=== PATIENT | female | born 1990 | race African-American/Black ===

== ENCOUNTER 2020-02-10 11:47 | Emergency (ER) | payer OTHER ==
[2020-02-10 16:03] VITALS: BP 141/88
--- NOTE | 2020-02-10 16:04 | NUR ---
Patient discharged with v/s stable. Written and verbal after care instructions given and explained. Patient alert, oriented and verbalized understanding of instructions. Ambulatory with steady gait. All questions addressed prior to discharge. ID band removed. Patient advised to follow up with PMD. Rx of Provera 10mg given. Patient educated on indication of medication including possible reaction and side effects. Opportunity to ask questions provided and answered.
== END 2020-02-10 16:04 | disposition home or self-care (01) ==
LOC: MED 11:47
DX: E11.65 Type 2 diabetes mellitus with hyperglycemia (principal); E78.5 Hyperlipidemia, unspecified
CPT/HCPCS: 99283

== ENCOUNTER 2020-08-22 14:03 | Emergency (ER) | payer OTHER ==
[~2020-08-22] VITALS: Ht 160 cm; Wt 126.6 kg
[2020-08-22 14:17] VITALS: BP 117/103
[2020-08-22] MEDS ORDERED: LORA10TA19 PO (16:15)
[2020-08-22] MEDS ORDERED: IBUP-1842 PO (16:15)
[2020-08-22 16:30] VITALS: BP 143/65
== END 2020-08-22 16:31 | disposition home or self-care (01) ==
LOC: MED 14:03
DX: R07.0 Pain in throat (principal); F17.210 Nicotine dependence, cigarettes, uncomplicated; Z79.899 Other long term (current) drug therapy; Z71.6 Tobacco abuse counseling
CPT/HCPCS: 87081; 99283

== ENCOUNTER 2020-11-21 17:35 | Emergency (ER) | payer OTHER ==
[~2020-11-21] VITALS: Ht 160 cm; Wt 117.9 kg
[~2020-11-21 17:35] MED LIST: IBUP-1842 PO; LORA10TA19 PO
[2020-11-21 17:39] VITALS: BP 141/110
[2020-11-21] MEDS ORDERED: NACL 0.9% 1,000 ML IV SCH (17:55)
--- NOTE | 2020-11-21 18:15 | NUR ---
30 YO FEMALE BIBS C/O 10 GENERALIZED ABDOMINAL PAIN X FEW HOURS. ALSO REPORTS NAUSEA, DENIES VOMITING AND DIARRHEA. DENIES DYSURIA BUT REPORTS PINK-TINGED BLOOD WHEN SHE WIPED VAGINA THIS AM. PT WENT TO SEE MD AND WAS TOLD THAT URINALYSIS SHOWED KETONES AND GLUCOSE, HENCE ADVICED TO BE SEEN IN ER. A&OX4, GCS 15, PLACED ON MONITOR FOR FURTHER EVALUATION. BS IN ER: [id number] (HUMULIN N LAST TAKEN AT 1AM) PMH: DM MEDS: HUMULIN N ALLERGIES: LANTUS, AMOXICILLIN, UNRECALLED ANTIBIOTICS
--- NOTE | 2020-11-21 18:42 | NUR ---
BLOOD SAMPLES COLLECTED TAKEN TO LAB.
[2020-11-21 19:01] LABS: BASOPHILS # (AUTO) 0.2 K/uL (0.00-0.22); BASOPHILS % (AUTO) 2.1 % (0.0-2.0); EOSINOPHILS # (AUTO) 0.1 K/uL (0-0.4); EOSINOPHILS % (AUTO) 1.1 % (0.0-4.0); HEMATOCRIT 41.9 % (36-48); HEMOGLOBIN 14.4 g/dL (12.0-16.0); LYMPHOCYTES # (AUTO) 2.5 K/uL (2.5-16.5); LYMPHOCYTES % (AUTO) 34.3 % (20.5-51.1); MEAN CORPUSCULAR HEMOGLOBIN 30 pg (27-31); MEAN CORPUSCULAR HGB CONC 34 g/dL (33-37); MEAN CORPUSCULAR VOLUME 87.8 fL (80-94); MONOCYTES # (AUTO) 0.7 K/uL (0.8-1.0); MONOCYTES % (AUTO) 9.8 % (1.7-9.3); NEUTROPHILS # (AUTO) 3.8 K/uL (1.8-7.7); NEUTROPHILS % (AUTO) 52.7 % (42.2-75.2); PLATELET COUNT (AUTO) 304 K/uL (140-450); RED BLOOD CELL COUNT(AUTO) 4.78 MIL/uL (4.20-5.40); RED CELL DISTRIBUTION WIDTH 13.7 % (11.6-13.7); WHITE BLOOD COUNT (AUTO) 7.2 K/uL (4.8-10.8)
[2020-11-21 19:08] LABS: APPEARANCE,URINE CLEAR (CLEAR); BILIRUBIN,URINE NEGATIVE (NEGATIVE); BLOOD, URINE 3+ (NEGATIVE); COLOR,URINE YELLOW (YELLOW); LEUKOCYTE ESTERASE ,URINE NEGATIVE (NEGATIVE); NITRITE, URINE NEGATIVE (NEGATIVE); PH,URINE 5.5 (5.0-9.0); UGLUCOSE 3+ (NEGATIVE)
[2020-11-21 19:11] LABS: ALBUMIN 3.7 g/dL (3.4-5.0); ANION GAP 17.3 (8-16); CARBON DIOXIDE 22.2 mmol/L (21-32); CREATININE 0.9 mg/dL (0.6-1.3); POTASSIUM 4.5 mmol/L (3.5-5.1); TOTAL BILIRUBIN 0.3 mg/dL (0.0-1.0)
[2020-11-21 19:16] LABS: RBC,URINE 20-50 /HPF (0-5); WBC,URINE 0-5 /HPF (0-5)
[2020-11-21 19:17] LABS: YEAST,URINE Many /HPF (None Seen)
--- NOTE | 2020-11-21 19:20 | NUR ---
RECEIVING REPORT FROM JODEE CHAN FOR CONTINUITY OF CARE.
--- NOTE | 2020-11-21 19:21 | NUR ---
REPORT AND CONTINUATION OF CARE GIVEN TO DUSTIN MENA.
--- NOTE | 2020-11-21 19:29 | NUR ---
Patient appears to be resting comfortably in bed- high fowlers with eyes open. Respirations even and unlabored no signs of respiratory distress. Safety measures are in place, and will continue to monitor patient.
--- NOTE | 2020-11-21 19:32 | NUR ---
JODIE FRIAS AT BEDSIDE FOR EXAMINATION OF PATIENT
--- NOTE | 2020-11-21 19:44 | NUR ---
RT at bedside performing ABG.
--- NOTE | 2020-11-21 19:58 | NUR ---
PT REFUSED TO ABG. NOTIFIED.
--- NOTE | 2020-11-21 20:23 | NUR ---
Pt taken to CT via ralfredo.
[2020-11-21] MEDS ORDERED: OMEP40EC24 PO (21:07)
[2020-11-21] MEDS ORDERED: IBUP-2213 PO (21:07)
--- NOTE | 2020-11-21 21:08 | NUR ---
patient ambulated to the bathroom
--- NOTE | 2020-11-21 21:15 | NUR ---
IV removed, catheter intact and site benign. Applied folded 4x4 gauze and tape to stop bleeding.
--- NOTE | 2020-11-21 21:17 | NUR ---
Patient discharged with v/s stable. Written and verbal after care instructions given and explained. Patient alert, oriented and verbalized understanding of instructions. Ambulatory with steady gait. All questions addressed prior to discharge. ID band removed. Patient advised to follow up with PMD. Rx of PRILOSEC AND IBUPROFEN given. Patient educated on indication of medication including possible reaction and side effects. Opportunity to ask questions provided and answered.
[2020-11-21 21:18] VITALS: BP 141/110
== END 2020-11-21 21:17 | disposition home or self-care (01) ==
LOC: MED 17:35
DX: R10.13 Epigastric pain (principal); E11.9 Type 2 diabetes mellitus without complications; F17.210 Nicotine dependence, cigarettes, uncomplicated; Z79.1 Long term (current) use of non-steroidal anti-inflammatories (NSAID); Z79.899 Other long term (current) drug therapy; Z88.0 Allergy status to penicillin; Z88.8 Allergy status to other drugs, medicaments and biological substances
CPT/HCPCS: 36415; 74176; 80053; 81001; 83690; 85025; 96360; 99284; J7030

== ENCOUNTER 2021-04-04 13:47 | Emergency (ER) | payer OTHER ==
[~2021-04-04] VITALS: Ht 160 cm; Wt 116.6 kg
[~2021-04-04 13:47] MED LIST changes: +IBUP-2213 PO; +OMEP40EC24 PO
[2021-04-04 13:49] VITALS: BP 137/78
--- NOTE | 2021-04-04 14:08 | NUR ---
COVID PCR AND COVID ADRIANNE TAKEN TO LAB BY DUSTIN DHALIWAL
--- NOTE | 2021-04-04 14:10 | NUR ---
30 Y/O F C/O 9/10 BRADEN,NECK PAIN, COUGH , FATIGUE X LAST NIGHT. HER STUDENTS HAD COVID TESTED POSITIVE. BLOOD SUGAR 184 IN TRIAGE. PMH: DM MED: INSULIN
[2021-04-04] MEDS ORDERED: KETOROLAC 15 MG/ML VIAL IVP ONE (14:25)
[2021-04-04] MEDS ORDERED: METOCLOPRAMIDE 10 MG/2 ML INJ VIAL IVP ONE (14:25)
[2021-04-04] MEDS ORDERED: LORazepam 2 MG/ML VIAL IVP ONE (14:25)
[2021-04-04] MEDS ORDERED: NACL 0.9% 1,000 ML IV ONE (14:25)
[2021-04-04] MEDS ORDERED: diphenhydrAMINE 50 MG/ML VIAL IVP ONE (14:25)
--- NOTE | 2021-04-04 14:30 | NUR ---
SANDRA # 22 STARTED, BLOOD DRAWN AND WALKED DOWN TO LAB
--- NOTE | 2021-04-04 15:30 | NUR ---
PT RESTING COMFORTABLE IN BED
[2021-04-04] MEDS ORDERED: LIDOCAINE 5% 1 EA PATCH TP ONE (15:47)
[2021-04-04 15:50] VITALS: BP 123/72
[2021-04-04] MEDS ORDERED: LIDOCAINE 5% 1 EA PATCH TP STA (15:54)
[2021-04-04] MEDS ORDERED: LIDO5CRE19 TP (16:06)
[2021-04-04] MEDS ORDERED: IBUP-2213 PO (16:06)
[2021-04-04] MEDS ORDERED: METH-1681 PO (16:06)
--- NOTE | 2021-04-04 16:20 | NUR ---
Patient discharged with v/s stable. Written and verbal after care instructions given and explained. Patient alert, oriented and verbalized understanding of instructions. Ambulatory with steady gait. All questions addressed prior to discharge. ID band removed. Patient advised to follow up with PMD. Rx of IBUPROFEN, LIDOCAINE CREAM, ROBOXIN given. Patient educated on indication of medication including possible reaction and side effects. Opportunity to ask questions provided and answered.
[2021-04-05] MEDS ORDERED: LIDOCAINE 5% 1 EA PATCH TP SCH (09:00)
--- NOTE | 2021-04-08 10:52 | NUR ---
LATE ENTRY- IV NORMAL SALINE DISCONTINUED AT 1620.
== END 2021-04-04 16:20 | disposition home or self-care (01) ==
LOC: MED 13:47
DX: S16.1XXA Strain of muscle, fascia and tendon at neck level, initial encounter (principal); Z20.822 Contact with and (suspected) exposure to COVID-19; G43.909 Migraine, unspecified, not intractable, without status migrainosus; E11.9 Type 2 diabetes mellitus without complications; Z88.1 Allergy status to other antibiotic agents; Z79.899 Other long term (current) drug therapy; X58.XXXA Exposure to other specified factors, initial encounter; Y93.89 Activity, other specified; Y92.89 Other specified places as the place of occurrence of the external cause; Y99.8 Other external cause status
CPT/HCPCS: 81002; 81025; 87426; 96361; 96374; 96375; 99284; J1200; J1885; J2060; J2765; J7030; U0003